=== PATIENT | female | born 1970 | race Caucasian/White ===

== ENCOUNTER → 2023-12-16 14:33 | Outpatient (REF) | payer OTHER, SELFPAY | LOC: HWWDC 14:33 | PROVIDERS: ATTENDING PHYSICIAN Family Medicine | DX: Z12.31 Encounter for screening mammogram for malignant neoplasm of breast (principal) | CPT/HCPCS: 77063; 77067 ==

== ENCOUNTER → 2025-07-11 15:36 | Outpatient (REF) | payer OTHER, SELFPAY | LOC: WDC 15:36 | PROVIDERS: ATTENDING PHYSICIAN Family Medicine | DX: Z12.31 Encounter for screening mammogram for malignant neoplasm of breast (principal) | CPT/HCPCS: 77063; 77067 ==